=== PATIENT | male | born 1985 | race Caucasian/White ===

== ENCOUNTER 2020-06-08 16:33 | Emergency (ER) | payer BC ==
--- NOTE | 2020-06-08 17:10 | EDM.PDOC ---
ED HPI GENERAL MEDICAL PROBLEM - General Chief Complaint: Eye Problems Stated Complaint: R EYE SWELLING Time Seen by Provider: 06/08/20 16:47 Source of Information: Reports: Patient, RN Notes Reviewed - History of Present Illness INITIAL COMMENTS - FREE TEXT/NARRATIVE: 34 yr old male comes in with R eye drainage, mattering and crusting that has worsened over the past 2 days. Sx first started about 3 days ago. Did get some habanero pepper into his R eye shortly before sx started. Now aware of any thing else getting into his eye. Does not wear contacts. Has not otherwise been ill. - Related Data Allergies Allergy/AdvReac Type Severity Reaction Status Date / Time Penicillins Allergy Cannot Verified 06/08/20 16:46 Remember Home Meds: Home Meds Doxycycline [Vibra-Tabs] 100 mg PO Q12HR #14 tab 06/08/20 [Rx] Past Medical History - Past Health History Medical/Surgical History: Denies Medical/Surgical History Social & Family History - Tobacco Use Smoking Status *Q: Current Every Day Smoker Years of Tobacco use: 20 Packs/Tins Daily: 0.5 - Caffeine Use Caffeine Use: Reports: Coffee - Recreational Drug Use Recreational Drug Use: No ED ROS GENERAL - Review of Systems Review Of Systems: See Below Constitutional: Denies: Fever, Chills HEENT: Denies: Throat Pain Respiratory: Denies: Shortness of Breath, Cough Cardiovascular: Denies: Chest Pain GI/Abdominal: Denies: Abdominal Pain, Vomiting Skin: Reports: Erythema (R upper eyelid). Denies: Rash Neurological: Reports: No Symptoms ED EXAM GENERAL W FULL EYE - Physical Exam Exam: See Below General Appearance: Alert, No Apparent Distress Eye Exam: Right Eye: Conjunctival Injection, Bilateral Eye: PERRL Conjunctiva & Sclera: Right: Injected Cornea Exam: Bilateral: Normal Appearance Head: Atraumatic. No: Facial Swelling Neck: Supple Respiratory/Chest: No Respiratory Distress Neurological: Alert, Oriented, No Motor/Sensory Deficits Skin Exam: Warm, Dry, Normal Color, Erythema (erythema and swelling R upper eyelid, no visible stye at this time) Course - Vital Signs Last Recorded V/S: Last Vital Signs Temp 97.6 F 06/08/20 16:43 Pulse 77 06/08/20 16:43 Resp 16 06/08/20 16:43 BP 135/81 06/08/20 16:43 Pulse Ox 100 06/08/20 16:43 Departure - Departure Time of Disposition: 17:04 Disposition: Home, Self-Care 01 Condition: Fair Clinical Impression: Conjunctivitis Qualifiers: Conjunctivitis type: acute Acute conjunctivitis type: bacterial Laterality: right Qualified Code(s): H10.31 - Unspecified acute conjunctivitis, right eye - Discharge Information Prescriptions: Doxycycline [Vibra-Tabs] 100 mg PO Q12HR #14 tab Instructions: Allergic Conjunctivitis, Adult, [id number] Referrals: PCP,None [Primary Care Provider] - Forms: ED Department Discharge Additional Instructions: Doxycycline 100 mg twice daily for 1 week. Prescription has been sent to [facility] the [facility]. Avoid direct sunlight as much as possible when taking this antibiotic. Gentamycin eye drops, 2 drops 3 to 4 times daily for 1 week. Warm compresses R eye each time before using the eye drops. See your eye Dr if not much better within 3 to 5 days as expected. Return to ED as needed if symptoms worsening in any way. Sepsis Event Note (ED) - Evaluation Sepsis Screening Result: No Definite Risk - Focused Exam Vital Signs: Vital Signs Temp Pulse Resp BP Pulse Ox 06/08/20 16:43 97.6 F 77 16 135/81 100
== END 2020-06-08 17:20 | disposition home or self-care (01) ==
LOC: JD.ED 16:33
DX: H10.31 Unspecified acute conjunctivitis, right eye (principal); F17.210 Nicotine dependence, cigarettes, uncomplicated; Z88.0 Allergy status to penicillin
CPT/HCPCS: 99282; 99283

== ENCOUNTER 2023-08-07 08:34 | Emergency (ER) | payer BC, OTHER ==
[2023-08-07] MEDS ORDERED: Fluorescein 1 MG Ophth Strip EYELF ONE (08:52)
== END 2023-08-07 09:35 | disposition home or self-care (01) ==
LOC: JD.ED 08:34
DX: T15.01XA Foreign body in cornea, right eye, initial encounter (principal); F17.210 Nicotine dependence, cigarettes, uncomplicated; Z86.16 Personal history of COVID-19; Z88.0 Allergy status to penicillin
CPT/HCPCS: 65220; 99283

== ENCOUNTER 2023-10-11 18:26 | Emergency (ER) | payer OTHER ==
[2023-10-11] MEDS ORDERED: Rivaroxaban 10 MG Tab PO ONE (20:38)
== END 2023-10-11 21:09 | disposition home or self-care (01) ==
LOC: JD.ED 18:26
DX: I82.812 Embolism and thrombosis of superficial veins of left lower extremity (principal); F17.210 Nicotine dependence, cigarettes, uncomplicated; Z86.16 Personal history of COVID-19; Z88.0 Allergy status to penicillin; Z79.01 Long term (current) use of anticoagulants
CPT/HCPCS: 93971; 99283; A9270